=== PATIENT | male | born 1985 | race Two or more races ===

== ENCOUNTER 2019-03-17 19:44 | Observation (INO) | payer SELFPAY ==
[~2019-03-17] VITALS: Ht 175.3 cm; Wt 65.8 kg
[2019-03-17 20:36] LABS: BASO % 0 % (0-3); EOS # 0.1 x10^3/uL (0.0-0.7); EOS % 1 % (0-3); HEMATOCRIT 35.9 % (39.0-53.0); LYMPH # 0.7 x10^3/uL (1.0-4.8); LYMPH % 8 % (24-48); MEAN CORPUSCULAR HEMOGLOBIN 31 pg (25-35); MEAN CORPUSCULAR HGB CONC 33 g/dL (31-37); MEAN CORPUSCULAR VOLUME 93 fL (79-100); MONO # 0.6 x10^3/uL (0.0-1.1); MONO % 7 % (0-9); NEUT # 7.7 x10^3/uL (1.8-7.7); NEUT % 84 % (31-73); PLATELET COUNT 245 x10^3/uL (140-400); RED BLOOD COUNT 3.88 x10^6/uL (4.30-5.70); RED CELL DISTRIBUTION WIDTH 13.2 % (11.5-14.5); WHITE BLOOD COUNT 9.2 x10^3/uL (4.0-11.0)
[2019-03-17 21:20] LABS: CALCIUM 8.8 mg/dL (8.5-10.1); CREATININE 1.3 mg/dL (0.7-1.3); POTASSIUM 3.7 mmol/L (3.5-5.1)
[2019-03-17 21:22] LABS: ACETAMIN < 2 mcg/ml (10-30); ETHANOL < 10 mg/dL (0-10); SALIC < 2.8 mg/dL (2.8-20.0)
[2019-03-17 21:25] LABS: ALBUMIN/GLOBULIN RATIO 0.8 (1.0-1.7); TOTAL BILIRUBIN 0.3 mg/dL (0.2-1.0)
[2019-03-17 21:45] LABS: BILIRUBIN,URINE NEGATIVE (NEG); CLARITY,URINE CLEAR; COLOR,URINE YELLOW; NITRITE,URINE NEGATIVE (NEG); PH,URINE 6.5; PROTEIN,URINE 100 mg/dL (NEG-TRACE)
[2019-03-17 21:51] LABS: AMPHETAMINE/METHAMPHETAMINE NEG (NEG); BARBITURATES NEG (NEG); BENZODIAZEPINES NEG (NEG); CANNABINOIDS NEG (NEG); COCAINE NEG (NEG); METHADONE NEG (NEG); OPIATES NEG (NEG); PHENCYCLIDINE NEG (NEG)
[2019-03-17 21:52] LABS: BACTERIA,URINE 0 /HPF (0-FEW); HYALINE CASTS, URINE OCCASIONAL /HPF; RBC,URINE OCC /HPF (0-2); SQUAMOUS EPITHELIAL CELL,UR OCC /LPF; WBC,URINE 0 /HPF (0-4)
[2019-03-17] MEDS ORDERED: IV DEXTROSE 5% 250 ML BAG. IV PRN (23:45)
[2019-03-17] MEDS ORDERED: LISINOPRIL 10 MG TABLET PO ONE (23:55)
[2019-03-18 01:00] VITALS: BP 149/96
--- NOTE | 2019-03-18 01:02 | PHYS DOC ---
Past Medical History Past Medical History: Diabetes-Type I, Hypertension (BLAS SOLITARIO APRN) Past Surgical History: No Surgical History (BLAS SOLITARIO APRN) Alcohol Use: None Drug Use: Marijuana (BLAS SOLITARIO APRN) Attending Signature I have participated in the care of this patient and I have reviewed and agree with all pertinent clinical information above including history, exam, and recommendations. (LANDON VELÁSQUEZ MD) Adult General Chief Complaint Chief Complaint: HYPOGLYCEMIA HPI HPI Patient is a 33 year old male who presents to the emergency department today via EMS after having a hypoglycemic episode work. Patient states he is a type I diabetic and he has been out of his Humalog for the last month. He states that he took 50 units of Levemir earlier today, instead of the 40 units he is prescribed to compensate for being out of Humriskmethods. Patient states that he has been working very hard recently and he must not eaten throughout the day. Patient states that he did not take more insulin in an effort to harm himself, however, after speaking with the patient patient states he now feels suicidal because he is failing at work and will not get a promotion after all the hard work he is put in. Patient states "I want to move forward with life but my diabetes stops me every time and I'm tired of it." (BLAS SOLITARIO APRN) Review of Systems Review of Systems Constitutional: Denies fever or chills [] Eyes: Denies redness, or eye pain [] HENT: Denies nasal congestion or sore throat [] Respiratory: Denies cough or shortness of breath [] Cardiovascular: No additional information not addressed in HPI [] GI: Denies abdominal pain, nausea, vomiting, or diarrhea [] Musculoskeletal: Denies back pain or joint pain [] Integument: Denies rash or skin lesions [] Neurologic: Denies headache, focal weakness or sensory changes [] Endocrine: Denies polyuria or polydipsia; see HPI[] Psychiatric: see HPI All other systems were reviewed and found to be within normal limits, except as documented in this note. (BLAS SOLITARIO APRN) Current Medications Current Medications Current Medications Medications (Trade) Dose Ordered Sig/Shannan Start Time Stop Time Status Last Admin Dose Admin Dextrose (Dextrose 50%-Water Syringe) 12.5 gm PRN Q15MIN PRN 03/17/19 23:45 03/18/19 01:35 12.5 GM Dextrose (Iv Dextrose 5%) 250 ml PRN Q15MIN PRN 03/17/19 23:45 Lisinopril (Prinivil) 20 mg 1X ONCE 03/17/19 23:55 03/17/19 23:57 DC 03/18/19 00:16 20 MG (LANDON VELÁSQUEZ MD) Allergies Allergies Allergies Coded Allergies Type Severity Reaction Last Updated Verified No Known Drug Allergies 03/17/19 No (LANDON VELÁSQUEZ MD) Physical Exam Physical Exam Constitutional: Well developed, well nourished, no acute distress, non-toxic appearance. [] HENT: Normocephalic, atraumatic, bilateral external ears normal, oropharynx moist, no oral exudates, nose normal. [] Eyes: PERRLA, EOMI, conjunctiva normal, no discharge. [] Neck: Normal range of motion, no tenderness, supple, no stridor. [] Cardiovascular:Heart rate regular rhythm, no murmur [] Lungs & Thorax: Respirations even and unlabored, no retractions, no respiratory distress Skin: Warm, dry, no erythema, no rash. [] Extremities: No cyanosis, ROM intact, no edema. [] Neurologic: Alert and oriented X 3, no focal deficits noted. [] Psychologic: Affect depressed, judgement normal, mood normal. [] (BLAS SOLITARIO APRN) Current Patient Data Vital Signs Vital Signs Date Time Temp Pulse Resp B/P (MAP) Pulse Ox O2 Delivery O2 Flow Rate FiO2 03/17/19 23:54 80 20 163/87 (112) 100 Room Air 03/17/19 19:50 97.2 97.2 (LANDON VELÁSQUEZ MD) Lab Values Laboratory Tests Test 03/17/19 19:56 03/17/19 20:50 03/17/19 21:26 03/17/19 21:37 White Blood Count 9.2 x10^3/uL (4.0-11.0) Red Blood Count 3.88 x10^6/uL (4.30-5.70) L Hemoglobin 12.0 g/dL (13.0-17.5) L Hematocrit 35.9 % (39.0-53.0) L Mean Corpuscular Volume 93 fL (79-100) Mean Corpuscular Hemoglobin 31 pg (25-35) Mean Corpuscular Hemoglobin Concent 33 g/dL (31-37) Red Cell Distribution Width 13.2 % (11.5-14.5) Platelet Count 245 x10^3/uL (140-400) Neutrophils (%) (Auto) 84 % (31-73) H Lymphocytes (%) (Auto) 8 % (24-48) L Monocytes (%) (Auto) 7 % (0-9) Eosinophils (%) (Auto) 1 % (0-3) Basophils (%) (Auto) 0 % (0-3) Neutrophils # (Auto) 7.7 x10^3/uL (1.8-7.7) Lymphocytes # (Auto) 0.7 x10^3/uL (1.0-4.8) L Monocytes # (Auto) 0.6 x10^3/uL (0.0-1.1) Eosinophils # (Auto) 0.1 x10^3/uL (0.0-0.7) Basophils # (Auto) 0.0 x10^3/uL (0.0-0.2) Glucose (Fingerstick) 253 mg/dL (70-99) H 89 mg/dL (70-99) Sodium Level 141 mmol/L (136-145) Potassium Level 3.7 mmol/L (3.5-5.1) Chloride Level 103 mmol/L (98-107) Carbon Dioxide Level 29 mmol/L (21-32) Anion Gap 9 (6-14) Blood Urea Nitrogen 22 mg/dL (8-26) Creatinine 1.3 mg/dL (0.7-1.3) Estimated GFR (Cockcroft-Gault) 64.0 BUN/Creatinine Ratio 17 (6-20) Glucose Level 52 mg/dL (70-99) L Calcium Level 8.8 mg/dL (8.5-10.1) Total Bilirubin 0.3 mg/dL (0.2-1.0) Aspartate Amino Transferase (AST) 27 U/L (15-37) Alanine Aminotransferase (ALT) 32 U/L (16-63) Alkaline Phosphatase 100 U/L (46-116) Total Protein 7.0 g/dL (6.4-8.2) Albumin 3.0 g/dL (3.4-5.0) L Albumin/Globulin Ratio 0.8 (1.0-1.7) L Salicylates Level < 2.8 mg/dL (2.8-20.0) L Salicylate Last Dose Date Unk Salicylate Last Dose Time Unk Acetaminophen Level < 2 mcg/ml (10-30) L Acetaminophen Last Dose Date Unk Acetaminophen Last Dose Time Unk Ethyl Alcohol Level < 10 mg/dL (0-10) Urine Collection Type Unknown Urine Color Yellow Urine Clarity Clear Urine pH 6.5 Urine Specific [place] 1.015 Urine Protein 100 mg/dL (NEG-TRACE) Urine Glucose (UA) Negative mg/dL (NEG) Urine Ketones (Stick) Negative mg/dL (NEG) Urine Blood Negative (NEG) Urine Nitrite Negative (NEG) Urine Bilirubin Negative (NEG) Urine Urobilinogen Dipstick 1.0 mg/dL (0.2 mg/dL) Urine Leukocyte Esterase Negative (NEG) Urine RBC Occ /HPF (0-2) Urine WBC 0 /HPF (0-4) Urine Squamous Epithelial Cells Occ /LPF Urine Bacteria 0 /HPF (0-FEW) Urine Hyaline Casts Occasional /HPF Urine Mucus Slight /LPF Urine Opiates Screen Neg (NEG) Urine Methadone Screen Neg (NEG) Urine Barbiturates Neg (NEG) Urine Phencyclidine Screen Neg (NEG) Urine Amphetamine/Methamphetamine Neg (NEG) Urine Benzodiazepines Screen Neg (NEG) Urine Cocaine Screen Neg (NEG) Urine Cannabinoids Screen Neg (NEG) Urine Ethyl Alcohol Neg (NEG) Test 03/17/19 23:49 Glucose (Fingerstick) 138 mg/dL (70-99) H Laboratory Tests 03/17/19 19:56 Laboratory Tests 03/17/19 20:50 (LANDON VELÁSQUEZ MD) EKG EKG [] (BLAS SOLITARIO APRN) Radiology/Procedures Radiology/Procedures [] (BLAS SOLITARIO APRN) Course & Med Decision Making Course & Med Decision Making Pertinent Labs and Imaging studies reviewed. (See chart for details) PAT cylinder steamer Mai came to bedside to evaluate pt. Pt reports that his plan is to go outside and freeze to or go home and shoot himself. Pt is not willing to sign himself in for voluntary psychiatric treatment so he will have to be assessed by a State mental health batch mixer operator. Per the state director of field sales there are no available beds at this time will admit patient to the hospitalist until bed is available. Pt admitted to med/surg for hypoglycemia and suicidal ideations, Dr. Velásquez aware of patient. [] (BLAS SOLITARIO APRN) Dragon Disclaimer Dragon Disclaimer This electronic medical record was generated, in whole or in part, using a voice recognition dictation system. (BLAS SOLITARIO APRN) Departure Departure Impression: Primary Impression: Hypoglycemia Additional Impression: Suicidal ideations Disposition: ADMITTED INPATIENT Admitting Physician: KATHLEEN Patterson) (BLAS SOLITARIO APRN) Condition: STABLE Referrals: UNKNOWN PCP NAME (PCP) Problem Qualifiers BLAS SOLITARIO APRN Mar 18, 2019 01:02 LANDON VELÁSQUEZ MD Mar 18, 2019 04:38
[2019-03-18] MEDS: DEXTROSE 50% 25 GM / 50ML DISP.SYRIN. IV PRN ×2 (01:35→07:00)
[2019-03-18] MEDS ORDERED: diphenhydrAMINE HCL 25 MG CAPSULE PO PRN (02:45)
[2019-03-18 02:46] VITALS: BP 137/92
--- NOTE | 2019-03-18 03:43 | NUR ---
Patient arrived to 5S at 0050. Room assessment done prior to arrival. Pt is calm and interactive. Oriented to unit procedures. Belongings checked and left at nursing station. Will continue to monitor. MPRN
[2019-03-18 07:00] VITALS: BP 130/85
[2019-03-18] MEDS ORDERED: INSU100V6 SQ ×2 (07:15→16:26)
[2019-03-18] MEDS ORDERED: INSU100V13 SQ (07:15)
[2019-03-18] MEDS ORDERED: LISI-334 PO (07:15)
[2019-03-18] MEDS: INSULIN LISPRO 300 UNITS/3 ML VIAL. SQ SCH ×3 (08:00→17:13)
[2019-03-18] MEDS: GABAPENTIN 100 MG CAPSULE. PO SCH ×2 (10:26→14:18)
[2019-03-18 11:00] VITALS: BP 147/88
--- NOTE | 2019-03-18 11:26 | NUR ---
SW following. Chart reviewed, discussed with RN. PARUL spoke with Akbar with PAT team, pt is an involuntary placement. Per RN, OSH has contacted her a couple times. SW will continue to follow.
--- NOTE | 2019-03-18 14:08 | NUR ---
This RN tried to call [facility] at [phone] in regards to pt's labs. This RN was unable to leave a voicemail. Will try again.
--- NOTE | 2019-03-18 14:24 | NUR ---
This RN spoke to CHELY Palumbo from [facility] and updated him on pt's labs. Pt's information also faxed over to [phone].
--- NOTE | 2019-03-18 14:29 | PDOC1 ---
Adm History & Psych Evaluation Date of Admission Date of Admission DATE: 03/18/19 TIME: 13:31 Chief Complaint Chief Complaint He is a young gentleman with prior history of depression without any history of psychiatric hospital admissions is seen for initial psychiatric assessment. He is reportedly suicidal and admitted for deranged blood sugars. He has history of insulin-dependent diabetes. Upon interview, he appears cooperative and interactive and easily engaged in conversation. He reports, he is under tremendous pressure for several psychosocial circumstances having difficulty to cope with them. His stressors are reportedly including, living with his brother who has cancer and relationship is strained, working for long hours to help his brother and to maintain his own living, breakup from significant other couple of months ago, and financial challenges. In addition to that, he has court date for driving with a suspended license. He was not shown up for court date, which complicated the case with significant financial burden. His diabetes particularly insulin-dependent is an additional precipitating factor. He notes that, for the last few years he has been working hard to bring his life together and on track. However, his insulin-dependent diabetes is so major hindrance. States when he is diabetes get worse he usually get seizures. This is what exactly happened recently when he was working at [employer] via her house through a [employer], he passed out and didn't know what was happened. States, when he woke up he thought he was better . He states, first thing that came up in his mind was work I'm doing is for nothing. He has no reason to live. He has prior history of suicidal attempt back in March 2018 by overdose on his lisinopril. Alarming from direct suicidal attempt is, he was not happy being alive when he woke up after 3 hours. States, he had intention to got upset when he woke up. Depression is for the last 34 years, characterized as hopelessness, self-deprecating thoughts, insomnia, sad and irritable mood, and recurrent suicidal thoughts. He notes, current suicidal thoughts are for the last 3 months. He does have history of anxiety with panic attacks, previously treated for anxiety and depression when growing up. He was treated with Prozac, however, he didn't like it as it did cause emotional numbness. Presently, he denies panic attacks, anxiety is high. Depression is 10/10 10 is worse. He denies history of psychosis, auditory or visual hallucination. He denies history of mood instability including bipolar mood disorder, celeste, or hypoma tramaine. He endorses smoking cigarettes 5-6 per day, alcohol use is limited to occasional, and smokes THC. He reports being clean on THC for a month now. He denies history of other illicit substance use. Problems: (1) Suicidal ideations (2) Hypoglycemia Source Source: Caregiver, Chart review, Patient Past Psychiatric History PSYCH MOOD: Anxious, Depressed, Dysthymic, Sad Current Medications Current Medications Current Medications Lisinopril (Prinivil) 20 mg 1X ONCE PO Last administered on 03/18/19at 00:16; Start 03/17/19 at 23:55; Stop 03/17/19 at 23:57; Status DC Insulin Human Lispro (HumaLOG) 0-5 UNITS TIDWMEALS SQ Last administered on 03/18/19at 12:56; Start 03/18/19 at 08:00 Dextrose (Dextrose 50%-Water Syringe) 12.5 gm PRN Q15MIN PRN IV SEE COMMENTS Last administered on 03/18/19at 07:00; Start 03/17/19 at 23:45 Dextrose (Iv Dextrose 5%) 250 ml PRN Q15MIN PRN IV SEE COMMENTS; Start 03/17/19 at 23:45 Diphenhydramine HCl (Benadryl) 25 mg PRN Q4HRS PRN PO ITCHING Last administered on 03/18/19at 07:00; Start 03/18/19 at 02:45 Gabapentin (Neurontin) 100 mg TID PO Last administered on 03/18/19at 10:26; Start 03/18/19 at 09:00 Zolpidem Tartrate (Ambien) 5 mg QHS PO ; Start 03/18/19 at 21:00 Active Scripts Active Reported Humalog (Insulin Lispro) 100 Unit/1 Ml Vial 15-17 Unit SQ TIDAC Levemir (Insulin Detemir) 100 Unit/1 Ml Vial 40 Unit SQ HS Lisinopril 20 Mg Tablet 20 Mg PO HS Allergies Allergies: Coded Allergies: No Known Drug Allergies (Unverified , 03/17/19) Mental Status Examination Mental Status Examination Patient is a young gentleman, appears depressed, fairly nourished and groomed and dressed in hospital gown. He is cooperative and interactive. Speech is with regular rate and rhythm, normal tone and volume. Thought processes linear and goal-directed. He denies auditory or visual hallucinations. He endorses suicidal thoughts with a plan to hang himself or shoot himself in head. He denies any intent of suicide while in hospital. He denies homicidal ideation. Mood is depressed and anxious. Affect is constricted and dysphoric. Insight is limited. Judgment is limited. Concentration is impaired. Memory is intact. Assests He can express his needs, willing to seek treatment, he has reasonable insight to understand his problems. Weaknesses He has limited coping skills to live with depression or deal with his anxiety and stressors. He needs to be involved in psychotherapeutic milieu to learn coping skills and strategies to hold his stressors. ROS PSYCHOLOGICAL ROS: YES: Anxiety, Concentration difficultie, Depression Neurological: Yes Other (no abnormal involuntary movements noted. No focal neurological deficit.) Vitals Vitals Vital Signs Date Time Temp Pulse Resp B/P (MAP) Pulse Ox O2 Delivery O2 Flow Rate FiO2 03/18/19 11:00 97.8 91 17 147/88 (107) 97 Room Air 97.8 03/18/19 02:46 97.0 Labs Labs Laboratory Tests Test 03/17/19 19:56 03/17/19 20:50 03/17/19 21:26 03/17/19 21:37 White Blood Count 9.2 x10^3/uL (4.0-11.0) Red Blood Count 3.88 x10^6/uL (4.30-5.70) Hemoglobin 12.0 g/dL (13.0-17.5) Hematocrit 35.9 % (39.0-53.0) Mean Corpuscular Volume 93 fL (79-100) Mean Corpuscular Hemoglobin 31 pg (25-35) Mean Corpuscular Hemoglobin Concent 33 g/dL (31-37) Red Cell Distribution Width 13.2 % (11.5-14.5) Platelet Count 245 x10^3/uL (140-400) Neutrophils (%) (Auto) 84 % (31-73) Lymphocytes (%) (Auto) 8 % (24-48) Monocytes (%) (Auto) 7 % (0-9) Eosinophils (%) (Auto) 1 % (0-3) Basophils (%) (Auto) 0 % (0-3) Neutrophils # (Auto) 7.7 x10^3/uL (1.8-7.7) Lymphocytes # (Auto) 0.7 x10^3/uL (1.0-4.8) Monocytes # (Auto) 0.6 x10^3/uL (0.0-1.1) Eosinophils # (Auto) 0.1 x10^3/uL (0.0-0.7) Basophils # (Auto) 0.0 x10^3/uL (0.0-0.2) Glucose (Fingerstick) 253 mg/dL (70-99) 89 mg/dL (70-99) Sodium Level 141 mmol/L (136-145) Potassium Level 3.7 mmol/L (3.5-5.1) Chloride Level 103 mmol/L (98-107) Carbon Dioxide Level 29 mmol/L (21-32) Anion Gap 9 (6-14) Blood Urea Nitrogen 22 mg/dL (8-26) Creatinine 1.3 mg/dL (0.7-1.3) Estimated GFR (Cockcroft-Gault) 64.0 BUN/Creatinine Ratio 17 (6-20) Glucose Level 52 mg/dL (70-99) Calcium Level 8.8 mg/dL (8.5-10.1) Total Bilirubin 0.3 mg/dL (0.2-1.0) Aspartate Amino Transf (AST/SGOT) 27 U/L (15-37) Alanine Aminotransferase (ALT/SGPT) 32 U/L (16-63) Alkaline Phosphatase 100 U/L (46-116) Total Protein 7.0 g/dL (6.4-8.2) Albumin 3.0 g/dL (3.4-5.0) Albumin/Globulin Ratio 0.8 (1.0-1.7) Salicylates Level < 2.8 mg/dL (2.8-20.0) Salicylate Last Dose Date Unk Salicylate Last Dose Time Unk Acetaminophen Level < 2 mcg/ml (10-30) Acetaminophen Last Dose Date Unk Acetaminophen Last Dose Time Unk Ethyl Alcohol Level < 10 mg/dL (0-10) Urine Collection Type Unknown Urine Color Yellow Urine Clarity Clear Urine pH 6.5 Urine Specific [place] 1.015 Urine Protein 100 mg/dL (NEG-TRACE) Urine Glucose (UA) Negative mg/dL (NEG) Urine Ketones (Stick) Negative mg/dL (NEG) Urine Blood Negative (NEG) Urine Nitrite Negative (NEG) Urine Bilirubin Negative (NEG) Urine Urobilinogen Dipstick 1.0 mg/dL (0.2 mg/dL) Urine Leukocyte Esterase Negative (NEG) Urine RBC Occ /HPF (0-2) Urine WBC 0 /HPF (0-4) Urine Squamous Epithelial Cells Occ /LPF Urine Bacteria 0 /HPF (0-FEW) Urine Hyaline Casts Occasional /HPF Urine Mucus Slight /LPF Urine Opiates Screen Neg (NEG) Urine Methadone Screen Neg (NEG) Urine Barbiturates Neg (NEG) Urine Phencyclidine Screen Neg (NEG) Urine Amphetamine/Methamphetamine Neg (NEG) Urine Benzodiazepines Screen Neg (NEG) Urine Cocaine Screen Neg (NEG) Urine Cannabinoids Screen Neg (NEG) Urine Ethyl Alcohol Neg (NEG) Test 03/17/19 23:49 03/18/19 01:28 03/18/19 01:39 Glucose (Fingerstick) 138 mg/dL (70-99) 61 mg/dL (70-99) 119 mg/dL (70-99) Laboratory Tests Test 03/17/19 19:56 03/17/19 20:50 03/17/19 21:26 03/17/19 21:37 White Blood Count 9.2 x10^3/uL (4.0-11.0) Red Blood Count 3.88 x10^6/uL (4.30-5.70) Hemoglobin 12.0 g/dL (13.0-17.5) Hematocrit 35.9 % (39.0-53.0) Mean Corpuscular Volume 93 fL (79-100) Mean Corpuscular Hemoglobin 31 pg (25-35) Mean Corpuscular Hemoglobin Concent 33 g/dL (31-37) Red Cell Distribution Width 13.2 % (11.5-14.5) Platelet Count 245 x10^3/uL (140-400) Neutrophils (%) (Auto) 84 % (31-73) Lymphocytes (%) (Auto) 8 % (24-48) Monocytes (%) (Auto) 7 % (0-9) Eosinophils (%) (Auto) 1 % (0-3) Basophils (%) (Auto) 0 % (0-3) Neutrophils # (Auto) 7.7 x10^3/uL (1.8-7.7) Lymphocytes # (Auto) 0.7 x10^3/uL (1.0-4.8) Monocytes # (Auto) 0.6 x10^3/uL (0.0-1.1) Eosinophils # (Auto) 0.1 x10^3/uL (0.0-0.7) Basophils # (Auto) 0.0 x10^3/uL (0.0-0.2) Glucose (Fingerstick) 253 mg/dL (70-99) 89 mg/dL (70-99) Sodium Level 141 mmol/L (136-145) Potassium Level 3.7 mmol/L (3.5-5.1) Chloride Level 103 mmol/L (98-107) Carbon Dioxide Level 29 mmol/L (21-32) Anion Gap 9 (6-14) Blood Urea Nitrogen 22 mg/dL (8-26) Creatinine 1.3 mg/dL (0.7-1.3) Estimated GFR (Cockcroft-Gault) 64.0 BUN/Creatinine Ratio 17 (6-20) Glucose Level 52 mg/dL (70-99) Calcium Level 8.8 mg/dL (8.5-10.1) Total Bilirubin 0.3 mg/dL (0.2-1.0) Aspartate Amino Transf (AST/SGOT) 27 U/L (15-37) Alanine Aminotransferase (ALT/SGPT) 32 U/L (16-63) Alkaline Phosphatase 100 U/L (46-116) Total Protein 7.0 g/dL (6.4-8.2) Albumin 3.0 g/dL (3.4-5.0) Albumin/Globulin Ratio 0.8 (1.0-1.7) Salicylates Level < 2.8 mg/dL (2.8-20.0) Salicylate Last Dose Date Unk Salicylate Last Dose Time Unk Acetaminophen Level < 2 mcg/ml (10-30) Acetaminophen Last Dose Date Unk Acetaminophen Last Dose Time Unk Ethyl Alcohol Level < 10 mg/dL (0-10) Urine Collection Type Unknown Urine Color Yellow Urine Clarity Clear Urine pH 6.5 Urine Specific [place] 1.015 Urine Protein 100 mg/dL (NEG-TRACE) Urine Glucose (UA) Negative mg/dL (NEG) Urine Ketones (Stick) Negative mg/dL (NEG) Urine Blood Negative (NEG) Urine Nitrite Negative (NEG) Urine Bilirubin Negative (NEG) Urine Urobilinogen Dipstick 1.0 mg/dL (0.2 mg/dL) Urine Leukocyte Esterase Negative (NEG) Urine RBC Occ /HPF (0-2) Urine WBC 0 /HPF (0-4) Urine Squamous Epithelial Cells Occ /LPF Urine Bacteria 0 /HPF (0-FEW) Urine Hyaline Casts Occasional /HPF Urine Mucus Slight /LPF Urine Opiates Screen Neg (NEG) Urine Methadone Screen Neg (NEG) Urine Barbiturates Neg (NEG) Urine Phencyclidine Screen Neg (NEG) Urine Amphetamine/Methamphetamine Neg (NEG) Urine Benzodiazepines Screen Neg (NEG) Urine Cocaine Screen Neg (NEG) Urine Cannabinoids Screen Neg (NEG) Urine Ethyl Alcohol Neg (NEG) Test 03/17/19 23:49 03/18/19 01:28 03/18/19 01:39 Glucose (Fingerstick) 138 mg/dL (70-99) 61 mg/dL (70-99) 119 mg/dL (70-99) Impressions Impressons 1. Major depressive disorder, recurrent, severe without psychotic features. 2. Generalized anxiety disorder with panic attacks.. 3. History of THC abuse. 4. Moderate to severe psychosocial stressors. He is a young gentleman with history of major depressive episode in context of major depression admitted with deranged blood sugars and major depressive episode. Most likely depressive episode was precipitated by psychosocial circumstances and his limited capacity to cope with his stressors. He is in imminent danger to self harm requiring inpatient psychiatric admission or crisis stabilization and further treatment. At this point, I recommend Lexapro 10 mg daily for anxiety and depression. Additionally, I recommend trazodone 50 mg as needed for insomnia. Assessment/Plan Assessment/Plan Patient is at risk of self-harm would need continuous observation for suicidal watch. For major depressive episode, started Lexapro 10 mg daily. Since Lexapro is not available, will start him on citalopram 20 mg daily which is also available in $4 list presented Hold of trazodone as patient is on Ambien. In case Ambien wouldn't work, we'll consider trazodone then. Average visit (sk, benefits, alternatives are discussed. He is in agreement plan and voiced understanding. Adverse drug reactions including but not limited to weight gain/weight loss, sexual dysfunction, suicidality, anxiety, and insomnia are discussed. Continue to monitor for mood, anxiety, and suicidality. We will make medication changes accordingly. MAYDA GUTIERREZ MD Mar 18, 2019 14:29
[2019-03-18 14:49] VITALS: BP 142/84
[2019-03-18] MEDS ORDERED: CITALOPRAM 20 MG TABLET. PO SCH (15:00)
--- NOTE | 2019-03-18 15:43 | NUR ---
This RN gave report to CHELY Alegria at [facility].
--- NOTE | 2019-03-18 16:04 | NUR ---
SW arranged transport via [facility] at [phone] to OSH.
--- NOTE | 2019-03-18 19:45 | NUR ---
Discharge Note: DEL[facility] Discharge instructions and discharge home medications reviewed with Patient and a copy given. All questions have been answered and understanding verbalized. The following instructions and handouts were given: follow up with PCP Discontinued lines and drains: IV catheter intact. Patient discharged to [place] with [facility]
[2019-03-18] MEDS ORDERED: ZOLPIDEM 5 MG TABLET. PO SCH (21:00)
[2019-03-18 23:07] LABS: HEMOGLOBIN A1C 9.9 % (4.8-5.6)
--- NOTE | 2019-03-18 23:34 | SSS ---
ADMIT DATE: 03/18/2019 The patient is admitted and discharged on 03/18/2019. CHIEF COMPLAINT: Hypoglycemia and depression. HISTORY OF PRESENT ILLNESS: The patient is a pleasant 33-year-old male who took 50 units of insulin. He states he was not trying to hurt himself, but his sugar dropped down to the 30s. He was admitted overnight for observation. This morning, he has been examined. He wants to go to an inpatient psych because now he is depressed. I called Psychiatry, Dr. Macias, who came over to see the patient. He agrees the patient is depressed. He has a plan to hurt himself. We are going to discharge him to [facility]. PAST MEDICAL HISTORY: Depression and diabetes. ALLERGIES: None. FAMILY HISTORY: Diabetes. SOCIAL HISTORY: Does not drink, smoke, or take drugs. MEDICATIONS: Reviewed, please refer to the MRAD. REVIEW OF SYSTEMS: GENERAL: No history of weight change, weakness or fevers. SKIN: No bruising, hair changes or rashes. EYES: No blurred, double or loss of vision. NOSE AND THROAT: No history of nosebleeds, hoarseness or sore throat. HEART: No history of palpitations, chest pain or shortness of breath on exertion. LUNGS: Denies cough, hemoptysis, wheezing or shortness of breath. GASTROINTESTINAL: Denies changes in appetite, nausea, vomiting, diarrhea or constipation. GENITOURINARY: No history of frequency, urgency, hesitancy or nocturia. NEUROLOGIC: Denies history of numbness, tingling, tremor or weakness. PSYCHIATRIC: He complains of depression. ENDOCRINE: No history of heat or cold intolerance, polyuria or polydipsia. EXTREMITIES: Denies muscle weakness, joint pain, pain on walking or stiffness. PHYSICAL EXAMINATION: VITALS: Within normal limits and are stable. GENERAL: No apparent distress. Alert and oriented. HEENT: Normal cephalic atraumatic, external auditory canals are patent. EYES: Extraocular muscles are intact, pupils are equally round and reactive to light and accommodation. MUSCULOSKELETAL: Well developed, well nourished, good range of motion. ENDOCRINE: No thyromegaly was palpated. LYMPHATICS: No cervical chain or axillary nodes were noted. HEMATOPOIETIC: No bruising. NECK: Supple, no JVD, no thyromegaly was noted. LUNGS: Clear to auscultation in all lung bynum without rhonchi or wheezing. HEART: RRR, S1, S2 present. Peripheral pulses intact, no obvious murmurs were noted. ABDOMEN: Soft, nontender. Positive bowel sounds no organomegaly, normal bowel sounds. EXTREMITIES: Without any cyanosis, clubbing, or edema. Pedal pulses intact, Homans sign is negative. NEUROLOGIC: Normal speech, normal tone. A & O x3, moves all extremities, no obvious focal deficits. PSYCHIATRIC: Normal affect, normal mood. Stable. SKIN: No ulcerations or rashes, good skin turgor, no jaundice. VASCULAR: Good capillary refill, neurovascular bundle appears to be intact. ASSESSMENT AND PLAN: Resolving hypoglycemia. His sugar is up to 167 now. We have observed him overnight. Regarding his suicidal ideation, we plan to discharge to [facility]. DISPOSITION: Inpatient psych. ACTIVITY: As tolerated. DIET: Low sodium. MEDICATIONS: Please see MRAD. TOTAL TIME: 32 minutes. VIELKA STARK DO DR: MARANDA/suzy JOB#: [id number] / [id number]
== END 2019-03-19 08:26 ==
LOC: ER 19:44 → 5 SOUTH 03-18 00:01
PROVIDERS: ADMIT Internal Medicine; ATTEND Internal Medicine
DX: R45.851 Suicidal ideations (principal); E10.649 Type 1 diabetes mellitus with hypoglycemia without coma; F32.9 Major depressive disorder, single episode, unspecified; F41.9 Anxiety disorder, unspecified; Z79.4 Long term (current) use of insulin
CPT/HCPCS: 36415; 80053; 80307; 80329; 81001; 82962; 83036; 84443; 85025; 96372; 96374; 96376; 99284; G0378; G0480; J1815; J7042; Q0163; G0379

== ENCOUNTER 2021-01-25 11:51 | Emergency (ER) | payer SELFPAY ==
[~2021-01-25] VITALS: Ht 177.8 cm; Wt 65.0 kg
[~2021-01-25 11:51] MED LIST: INSU100V13 SQ; INSU100V6 SQ; LISI20TA18 PO
[2021-01-25] MEDS ORDERED: IV NORMAL SALINE 1000ML BAG 1,000 ML IV ONE (12:30)
[2021-01-25] MEDS ORDERED: ONDANSETRON PF 4 MG/2 ML VIAL. IVP ONE (12:30)
[2021-01-25] MEDS ORDERED: INSULIN REGULAR 100 UNIT/ML 3ML VIAL. IV ONE (12:45)
[2021-01-25 12:46] LABS: BASO # 0.1 x10^3/uL (0.0-0.2); BASO % 1 % (0-3); EOS # 0.1 x10^3/uL (0.0-0.7); EOS % 1 % (0-3); HEMOGLOBIN 13.5 g/dL (13.0-17.5); LYMPH % 10 % (24-48); MEAN CORPUSCULAR HEMOGLOBIN 30 pg (25-35); MEAN CORPUSCULAR HGB CONC 34 g/dL (31-37); MEAN CORPUSCULAR VOLUME 90 fL (79-100); MONO # 0.4 x10^3/uL (0.0-1.1); MONO % 4 % (0-9); NEUT # 8.7 x10^3/uL (1.8-7.7); NEUT % 85 % (31-73); PLATELET COUNT 251 x10^3/uL (140-400); RED BLOOD COUNT 4.46 x10^6/uL (4.30-5.70); RED CELL DISTRIBUTION WIDTH 12.7 % (11.5-14.5); WHITE BLOOD COUNT 10.2 x10^3/uL (4.0-11.0)
[2021-01-25 12:56] LABS: CALCIUM 8.4 mg/dL (8.5-10.1); CREATININE 1.8 mg/dL (0.7-1.3); GFR 43.4; POTASSIUM 3.8 mmol/L (3.5-5.1)
[2021-01-25 13:04] LABS: ALBUMIN 3.3 g/dL (3.4-5.0); TOTAL BILIRUBIN 0.5 mg/dL (0.2-1.0); TOTAL PROTEIN 6.6 g/dL (6.4-8.2)
[2021-01-25] MEDS ORDERED: hydrALAZINE 20 MG/ML VIAL. IVP ONE (13:15)
--- NOTE | 2021-01-25 14:18 | PHYS DOC ---
Past Medical History Past Medical History: Diabetes-Type I, Hypertension Past Surgical History: No Surgical History Smoking Status: Never Smoker Alcohol Use: None Drug Use: Marijuana General Adult EDM: Chief Complaint: HYPERGLYCEMIA HPI: HPI: 35-year-old male presents to the emergency department complaining of nausea and vomiting for the past hour and a half just prior to arrival to the emergency department. Patient states he is a type I diabetic. Patient was brought in by EMS paramedics who report his blood sugar was over 400. Patient denies chest pains, shortness of breath, diaphoretic episodes. Patient states he is nauseated and has vomited however not noticed blood in his vomitus. Patient states he does not have insurance and cannot afford his insulin at home. Patient states he has prescriptions to fill and has no resources to get them filled. Patient denies other physical complaints or physical concerns. Review of Systems: Review of Systems: 14 body systems of review of systems have been reviewed. See HPI for pertinent positives and negative responses, otherwise all other systems are negative, nonpertinent or noncontributory. Constitutional: Negative except as outlined in HPI above. Skin: Negative except as outlined in HPI above. Eyes: Negative except as outlined in HPI above. HENT: Negative except as outlined in HPI above. Respiratory: Negative except as outlined in HPI above. Cardiovascular: Negative except as outlined in HPI above. GI: Negative except as outlined in HPI above. : Negative except as outlined in HPI above. Musculoskeletal: Negative except as outlined in HPI above. Integument: Negative except as outlined in HPI above. Neurologic: Negative except as outlined in HPI above. Endocrine: Negative except as outlined in HPI above. Lymphatic: Negative except as outlined in HPI above. Psychiatric: Negative except as outlined in HPI above. Heart Score: C/O Chest Pain: No Risk Factors: Risk Factors: DM, Current or recent (<one month) smoker, HTN, HLP, family history of CAD, obesity. Risk Scores: Score 0 - 3: 2.5% MACE over next 6 weeks - Discharge Home Score 4 - 6: 20.3% MACE over next 6 weeks - Admit for Clinical Observation Score 7 - 10: 72.7% MACE over next 6 weeks - Early Invasive Strategies Current Medications: Current Medications Medications (Trade) Dose Ordered Sig/Shannan Start Time Stop Time Status Last Admin Dose Admin Hydralazine HCl (Apresoline Inj) 10 mg 1X ONCE 01/25/21 13:15 01/25/21 13:16 DC Insulin Human Regular (HumuLIN R VIAL) 10 unit 1X ONCE 01/25/21 12:45 01/25/21 12:46 DC 01/25/21 12:54 10 UNIT Ondansetron HCl (Zofran) 4 mg 1X ONCE 01/25/21 12:30 01/25/21 12:33 DC 01/25/21 12:52 4 MG Sodium Chloride 1,000 ml @ 1,000 mls/hr 1X ONCE 01/25/21 12:30 01/25/21 13:29 DC 01/25/21 12:59 1,000 MLS/HR Allergies: Allergies: Allergies Coded Allergies Type Severity Reaction Last Updated Verified No Known Drug Allergies 03/17/19 No Physical Exam: PE: Constitutional: Well developed, well nourished, no acute distress, non-toxic appearance. 35-year-old in no apparent distress. HENT: Normocephalic, atraumatic. Eyes: Conjunctiva normal, no discharge. Neck: Normal range of motion, no stridor. Cardiovascular: No cyanosis appreciated, distal cap refill less than 2 seconds. Lungs & Thorax: Patient is in no respiratory distress, no audible adventitious lung sounds appreciated. Lung sounds clear to auscultate all lung bynum, the patient is not tachypneic, no appreciated kussmal breathing. Abdomen: Nontender, no abnormalities noted. Skin: Warm, dry, no erythema, no rash. Back: No tenderness, no deformities. Extremities: No tenderness, no cyanosis, no clubbing, ROM intact, no edema. Neurologic: Alert and oriented X 3, normal motor function, normal sensory function, no focal deficits noted. Psychologic: Affect normal, judgement normal, mood normal. Current Patient Data: Labs: Laboratory Tests Test 01/25/21 12:10 01/25/21 12:17 01/25/21 13:28 White Blood Count 10.2 x10^3/uL (4.0-11.0) Red Blood Count 4.46 x10^6/uL (4.30-5.70) Hemoglobin 13.5 g/dL (13.0-17.5) Hematocrit 40.0 % (39.0-53.0) Mean Corpuscular Volume 90 fL (79-100) Mean Corpuscular Hemoglobin 30 pg (25-35) Mean Corpuscular Hemoglobin Concent 34 g/dL (31-37) Red Cell Distribution Width 12.7 % (11.5-14.5) Platelet Count 251 x10^3/uL (140-400) Neutrophils (%) (Auto) 85 % (31-73) H Lymphocytes (%) (Auto) 10 % (24-48) L Monocytes (%) (Auto) 4 % (0-9) Eosinophils (%) (Auto) 1 % (0-3) Basophils (%) (Auto) 1 % (0-3) Neutrophils # (Auto) 8.7 x10^3/uL (1.8-7.7) H Lymphocytes # (Auto) 1.0 x10^3/uL (1.0-4.8) Monocytes # (Auto) 0.4 x10^3/uL (0.0-1.1) Eosinophils # (Auto) 0.1 x10^3/uL (0.0-0.7) Basophils # (Auto) 0.1 x10^3/uL (0.0-0.2) Sodium Level 139 mmol/L (136-145) Potassium Level 3.8 mmol/L (3.5-5.1) Chloride Level 104 mmol/L (98-107) Carbon Dioxide Level 24 mmol/L (21-32) Anion Gap 11 (6-14) Blood Urea Nitrogen 25 mg/dL (8-26) Creatinine 1.8 mg/dL (0.7-1.3) H Estimated GFR (Cockcroft-Gault) 43.4 BUN/Creatinine Ratio 14 (6-20) Glucose Level 361 mg/dL (70-99) H Calcium Level 8.4 mg/dL (8.5-10.1) L Total Bilirubin 0.5 mg/dL (0.2-1.0) Aspartate Amino Transferase (AST) 50 U/L (15-37) H Alanine Aminotransferase (ALT) 71 U/L (16-63) H Alkaline Phosphatase 96 U/L (46-116) Total Protein 6.6 g/dL (6.4-8.2) Albumin 3.3 g/dL (3.4-5.0) L Albumin/Globulin Ratio 1.0 (1.0-1.7) Acetone Level Neg (NEG) Glucose (Fingerstick) 311 mg/dL (70-99) H 217 mg/dL (70-99) H Laboratory Tests 01/25/21 12:10 Laboratory Tests 01/25/21 12:10 Vital Signs: Vital Signs Date Time Temp Pulse Resp B/P (MAP) Pulse Ox O2 Delivery O2 Flow Rate FiO2 01/25/21 13:23 73 17 158/96 (116) 99 Room Air 01/25/21 12:05 97.6 97.6 EKG: EKG: [] Radiology/Procedures: Radiology/Procedures: [] Course & Med Decision Making: Course & Med Decision Making Physical examPertinent Labs and Imaging studies reviewed. (See chart for details) 35-year-old male, vital signs reviewed, presents emergency department concerning hyperglycemia. Patient feels he might be in DKA. Nation nonconcerning not consistent with diabetic ketoacidosis however with reported field blood sugar of over 400 will order CBC, CMP, acetone level, will give 1 L normal saline. Fingerstick blood sugar over 300, will give 10 units IV insulin. 4 mg Zofran for nausea On reevaluation of the patient, the patient has not vomited during his ER stay, after 1 L normal saline was complete fingerstick blood sugar is 211, labs nonconcerning for diabetic ketoacidosis, discussed with patient need to fill insulin and take as directed by his primary care physician. Patient reports he has not seen a primary care physician for "quite some time now "states his type 1 diabetes is managed from various area emergency department physicians. Discussed with patient importance to establish primary care to have type 1 diabetes management. Patient states he cannot afford to see a doctor. Offered patient follow-up with [facility] hall director, patient denies need. Discussed with the patient all findings and diagnostic testing as well as the need to follow-up with their primary care provider for further evaluation and treatment or return to the ED if any new or worsening symptoms. Strict return precautions were also discussed at length, the patient voiced understanding and agreement with the discharge planning. The patient was nontoxic in appearance, in no apparent distress, and hemodynamically stable at the time of disposition. Dragon Disclaimer: Dragon Disclaimer: This electronic medical record was generated, in whole or in part, using a voice recognition dictation system. Departure Departure Impression: Primary Impression: Hyperglycemia due to type 1 diabetes mellitus Disposition: 01 HOME / SELF CARE / HOMELESS Condition: GOOD Referrals: UNKNOWN PCP NAME (PCP) Patient Instructions: Hyperglycemia Additional Instructions: You were seen and treated today in the emergency department for hyperglycemia related to not taking your insulin for your type 1 diabetes. You were treated with IV saline, Zofran for nausea, regular insulin for high blood sugar. Your blood sugar has normalized to 211 now from over 400 prior to arrival to the emergency department. As we discussed, please obtain resources to fill your insulin prescriptions. I am providing you with a list of area physicians or clinics to follow-up with to manage your type 1 diabetes. Thank you for visiting our Emergency Department. It was a pleasure taking care of you today in the emergency department and we appreciate you trusting us with your care. If any additional problems come up don't hesitate to return to visit us. Please follow up with your primary care provider so they can plan additional care if needed and know about the problem that you had. If symptoms worsen come back to the Emergency Department. Any concerning symptoms that start such as chest pain, shortness of air, weakness or numbness on one side of the body, running high fevers or any other concerning symptoms return to the ER. EMERGENCY DEPARTMENT GENERAL DISCHARGE INSTRUCTIONS Thank you for coming to [facility] Emergency Department (ED) today and trusting us with you care. We trust that you had a positive experience in our Emergency Department. If you wish to speak to the department management, you may call the Director at [phone]. YOUR FOLLOW UP INSTRUCTIONS ARE FOLLOWS: 1. Do you have a private Doctor? If you do not have a private doctor, please ask for a resource list of physicians or clinics that may be able to assist you with follow up care. 2. The Emergency Physicain has interpreted your x-rays. The X-Ray specialist will also review them. If there is a change in the findings, you will be notified in 48 hours when at all possible. 3. A lab test or culture has been done, your results will be reviewed and you will be notified if you need a change in treatment. ADDITIONAL INSTRUCTIONS AND INFORMATION: 1. Your care today has been supervised by a physician who is specially trained in emergency care. Many problems require more than one evaluation for a complete diagnosis and treatment. We recommend that you schedule your follow up appointment as recommended to ensure complete treatment of you illness or injury. If you are unable to obtain follow up care and continue to have a problem, or if your condition worsens, we recommend that you return to the ED. 2. We are not able to safely determine your condition over the phone nor are we able to give sound medical advice over the phone. For these safety reasons, if you call for medical advice we will ask you to come to the ED for further evaluation. 3. If you have any questions regarding these discharge instructions please call the ED at [phone]. SAFETY INFORMATION: In the interest of safety, wellness, and injury prevention; we encourage you to wear your sealbelt, if you smoke; quite smoking, and we encourage family to use a protective helmet for bicycling and other sporting events that present an increased risk for head injury. IF YOUR SYMPTOMS WORSEN OR NEW SYMPTOMS DEVELOP, OR YOU HAVE CONCERNS ABOUT YOUR CONDITION; OR IF YOUR CONDITION WORSENS WHILE YOU ARE WAITING FOR YOUR FOLLOW UP APPOINTMENT; EITHER CONTACT YOUR PRIMARY CARE DOCTOR, THE PHYSICIAN WHOSE NAME AND NUMBER YOU WERE GIVEN, OR RETURN TO THE ED IMMEDIATELY. LUCIUS TA EQUALIZER OPERATOR Jan 25, 2021 14:18
[2021-01-25 14:24] VITALS: BP 157/97
[2021-01-25 14:29] LABS: BILIRUBIN,URINE NEGATIVE (NEG); CLARITY,URINE CLEAR; COLOR,URINE YELLOW; NITRITE,URINE NEGATIVE (NEG); PH,URINE 7.5 (<5.0-8.0); PROTEIN,URINE 100 mg/dL (NEG-TRACE); UROBILINOGEN,URINE 0.2 mg/dL (0.2 mg/dL)
[2021-01-25 14:40] LABS: BACTERIA,URINE 0 /HPF (0-FEW); WBC,URINE 0 /HPF (0-4)
[2021-01-25] MEDS ORDERED: METOCLOPRAMIDE HCL 10 MG/2 ML VIAL. IVP ONE (15:15)
== END 2021-01-25 15:44 | disposition home or self-care (01) ==
LOC: ER 11:51
DX: E10.65 Type 1 diabetes mellitus with hyperglycemia (principal); I10 Essential (primary) hypertension
CPT/HCPCS: 36415; 80053; 81001; 82010; 82962; 85025; 96374; 96375; 99284; J0360; J1815; J2405; J2765; J7030